=== PATIENT | female | born 1970 | race African-American/Black ===

== ENCOUNTER 2016-11-17 07:57 | Emergency (ER) | payer OTHER ==
--- NOTE | 2016-11-17 08:29 | ER Document Report ---
ED Extremity Problem, Lower - General Chief Complaint: Foot Injury Stated Complaint: FOOT INJURY Time seen by provider: 08:26 Notes: This is a 46-year-old female with a history of diabetes mellitus and hypertension that presents today with left foot pain. She states that last night she was stepping down one step that leads outside of her home and slipped. She does not recall whether or not she twisted her ankle. She denies falling or hitting her head. She also states that 4 years ago, she was told that she had a hairline fracture in the left foot. She does not recall the exact location. She is not taking any blood thinners. Patient denies hip or knee pain bilaterally. She is able to bear weight on the left foot however she states that it is painful. Denies all other extremity pain. TRAVEL OUTSIDE OF THE [place] IN LAST 30 DAYS: No - Related Data Allergies/Adverse Reactions: No Known Allergies Allergy (Verified 07/20/16 13:46) Past Medical History - General Information source: Patient - Social History Smoking Status: Never Smoker Family History: Reviewed & Not Pertinent, CAD Past Surgical History: Reports: Hx Gynecologic Surgery - ovarian cyst removed. - Immunizations Hx Diphtheria, Pertussis, Tetanus Vaccination: No Review of Systems - Review of Systems Constitutional: No symptoms reported EENT: No symptoms reported Cardiovascular: No symptoms reported Respiratory: No symptoms reported Gastrointestinal: No symptoms reported Genitourinary: No symptoms reported Female Genitourinary: No symptoms reported Musculoskeletal: No symptoms reported Skin: No symptoms reported Hematologic/Lymphatic: No symptoms reported Neurological/Psychological: No symptoms reported Physical Exam - Vital signs Vitals: Temp Pulse Resp BP Pulse Ox 98.5 F 87 16 123/82 99 11/17/16 08:03 11/17/16 08:03 11/17/16 08:03 11/17/16 08:03 11/17/16 08:03 Interpretation: Normal - General General appearance: Appears well, Alert - HEENT Head: Normocephalic, Atraumatic Eyes: Normal - Respiratory Respiratory status: No respiratory distress Chest status: Nontender Breath sounds: Normal Chest palpation: Normal - Cardiovascular Rhythm: Regular Heart sounds: Normal auscultation Murmur: No - Abdominal Inspection: Normal Distension: No distension Bowel sounds: Normal Tenderness: Nontender - Extremities General upper extremity: Normal inspection, Nontender, Normal color, Normal ROM , Normal temperature General lower extremity: Normal inspection, Nontender, Normal color, Normal ROM , Normal weight bearing. No: Edema Hip: Normal - Normal range of motion and normal strength bilaterally. Can move it against gravity and resistance. No: Tender Knee: Normal - Normal strength and normal range of motion bilaterally. No: Tender Ankle: Tender - Tender to medial and lateral malleolus of left foot. normal range of motion Foot: Tender - Tenderness to palpation medial plantar surface of left foot. Denies any radiation of pain. - Neurological Orientation: AAOx4 Motor strength normal: LLE, RLE Sensory: Normal - Psychological Associated symptoms: Normal affect, Normal mood - Skin Skin Temperature: Warm Skin Moisture: Dry Skin Color: Normal Course - Re-evaluation Re-evalutation: 11/17/16 09:37 Patient was discharged on crutches. She was given multiple opportunities to ask questions. Patient stated that she would follow up with primary care physician. - Vital Signs Vital signs: Temp Pulse Resp BP Pulse Ox 97.4 F 81 16 114/73 99 11/17/16 10:18 11/17/16 10:18 11/17/16 10:18 11/17/16 10:18 11/17/16 10:18 Discharge - Discharge Clinical Impression: Left foot pain Heel spur Qualifiers: Laterality: left Qualified Code(s): M77.32 - Calcaneal spur, left foot Condition: Stable Disposition: HOME, SELF-CARE Additional Instructions: Rest, and elevate your left leg. Avoid strenuous activity. Return to the emergency department if symptoms worsen. Follow-up with primary care physician. Forms: Return to Work Referrals: ELIA BECERRA MD [Primary Care Provider] - Follow up as needed
[2016-11-17] MEDS ORDERED: HYDROCODONE/ACETAMINOPHEN 5-325 MG TABLET PO ONE (08:37)
[2016-11-17] MEDS ORDERED: HYDROCODONE/ACETAMINOPHEN 5-325 MG 6 TAB/DSPK PO PRN (10:11)
[2016-11-17 10:52] VITALS: BP 114/73
== END 2016-11-17 10:18 | disposition home or self-care (01) ==
LOC: ER 07:57
DX: M77.32 Calcaneal spur, left foot (principal); M79.672 Pain in left foot; W10.9XXA Fall (on) (from) unspecified stairs and steps, initial encounter; Y92.009 Unspecified place in unspecified non-institutional (private) residence as the place of occurrence of the external cause; E11.9 Type 2 diabetes mellitus without complications; I10 Essential (primary) hypertension
CPT/HCPCS: 99283